=== PATIENT | female | born 1980 | race Caucasian/White ===

== ENCOUNTER 2019-02-11 09:15 | Inpatient (IN) | payer SELFPAY ==
[2019-02-11] MEDS ORDERED: NORMAL SALINE 1000 ML 1,000 ML IV ONE (09:41)
--- NOTE | 2019-02-11 09:44 | ER Document Report ---
ED Medical Screen (RME) - General Chief Complaint: Vaginal Bleeding Stated Complaint: VAGINAL BLEEDING Time Seen by Provider: 02/11/19 09:37 Mode of Arrival: Wheelchair Information source: Patient Notes: 38-year-old female presented to ED for complaint of severe vaginal bleeding with large clots. She was seen here on 29 January and was followed up today at [facility] with Dr. Wei. Dr. Wei sent her to the ED for vaginal bleeding. He was in the process of doing a pelvic when she started having large amounts of bleeding from the vaginal area. Patient states she is continued to have a large amount of bleeding and clots. Patient is alert oriented respirations regular and unlabored speaking in full sentences at this time. Vital signs stable at this time. I have greeted and performed a rapid initial assessment of this patient. A comprehensive ED assessment and evaluation of the patient, analysis of test results and completion of medical decision making process will be conducted by an additional ED providers. Patient is going to take her back Dictation of this chart was performed using voice recognition software; therefore, there may be some unintended grammatical errors. TRAVEL OUTSIDE OF THE [place] IN LAST 30 DAYS: No - Related Data Allergies/Adverse Reactions: No Known Allergies Allergy (Verified 02/11/19 09:18) Past Medical History Pulmonary Medical History: Reports: Hx Asthma Neurological Medical History: Denies: Hx Seizures Renal/ Medical History: Denies: Hx Peritoneal Dialysis Past Surgical History: Reports: Hx Section - x4, Hx Gynecologic Surgery - right ectopic removed. Denies: Hx Hysterectomy - Immunizations Hx Diphtheria, Pertussis, Tetanus Vaccination: Yes Physical Exam - Vital signs Vitals: Temp Pulse Resp BP Pulse Ox 99.7 F 72 16 128/72 H 99 02/11/19 09:23 02/11/19 09:23 02/11/19 09:23 02/11/19 09:23 02/11/19 09:23 Course - Vital Signs Vital signs: Temp Pulse Resp BP Pulse Ox 99.7 F 72 16 128/72 H 99 02/11/19 09:23 02/11/19 09:23 02/11/19 09:23 02/11/19 09:23 02/11/19 09:23
[2019-02-11 10:25] LABS: INTERNATIONAL RATION (INR) 1.06; PROTHROMBIN TIME 13.9 SEC (11.4-15.4)
[2019-02-11 10:30] LABS: ABSOLUTE EOSINOPHILS # (AUTO) 0.1 10^3/uL (0.0-0.6); ABSOLUTE LYMPHOCYTES (AUTO) 0.8 10^3/uL (0.5-4.7); ABSOLUTE MONOCYTES (AUTO) 0.4 10^3/uL (0.1-1.4); BASOPHILS % (AUTO) 0.2 % (0-2); EOSINOPHILS % (AUTO) 1.2 % (0-6); HEMATOCRIT 31.4 % (36.0-47.0); HEMOGLOBIN 10.4 g/dL (12.0-15.5); LYMPHOCYTES % (AUTO) 12.7 % (13-45); MEAN CORPUSCULAR HEMOGLOBIN 25.4 pg (27.0-33.4); MEAN CORPUSCULAR HGB CONC 32.9 g/dL (32.0-36.0); MEAN CORPUSCULAR VOLUME 77 fl (80-97); MONOCYTES % (AUTO) 6.5 % (3-13); PARTIAL THROMBOPLASTIN TIME 28.5 SEC (23.5-35.8); PLATELET COUNT 291 10^3/uL (150-450); RED BLOOD COUNT 4.07 10^6/uL (3.72-5.28); SEGMENTED NEUTROPHILS % (AUTO) 79.4 % (42-78); TOTAL CELLS COUNTED % (AUTO) 100 %; WHITE BLOOD COUNT 6.3 10^3/uL (4.0-10.5)
--- NOTE | 2019-02-11 10:40 | ER Document Report ---
Entered by GIOVANNI BANSAL SCRIBE 02/11/19 1012 Acting as scribe for:ARNULFO LUCERO MD ED General - General Chief Complaint: Vaginal Bleeding Stated Complaint: VAGINAL BLEEDING Time Seen by Provider: 02/11/19 09:37 Mode of Arrival: Wheelchair Notes: Patient is a 38-year-old female presenting to the emergency department complaining of vaginal bleeding. Patient states that she had an episode of extremely heavy bleeding with clots on 01/28/19. She was prescribed TXA to treat a bleeding 6.7 cm submucosal mass of the cervix. Patient states that on 02/07/19 her vaginal bleeding recurred and has been getting progressively worse through the week. Patient states that the first time this bleeding occurred was on 09/15/18 and it was intermittent. Patient states that today it has been better and "it is not gushing as much". Patient states that she has been taking CBD oil for her PCOS symptoms, including her facial acne. She was seen at [facility] today for follow-up, and a speculum exam was done with a plan to biopsy the mass. When the speculum bumped against the mass, it provoked massive bleeding and clots, so the patient was sent to the emergency room for stabilization, possible transfusion, and transfer to the [facility]. TRAVEL OUTSIDE OF THE [place] IN LAST 30 DAYS: No - Related Data Allergies/Adverse Reactions: No Known Allergies Allergy (Verified 02/11/19 09:18) Past Medical History - General Information source: Patient - Social History Smoking Status: Former Smoker Cigarette use (# per day): No Chew tobacco use (# tins/day): No Frequency of alcohol use: None Drug Abuse: None Family History: Reviewed & Not Pertinent Patient has suicidal ideation: No Patient has homicidal ideation: No Pulmonary Medical History: Reports: Hx Asthma Past Surgical History: Reports: Hx Section - x4, Hx Cholecystectomy, Hx Gynecologic Surgery - right ectopic removed - Immunizations Hx Diphtheria, Pertussis, Tetanus Vaccination: Yes Review of Systems - Review of Systems Constitutional: No symptoms reported EENT: No symptoms reported Cardiovascular: No symptoms reported Respiratory: No symptoms reported Gastrointestinal: No symptoms reported Genitourinary: No symptoms reported Female Genitourinary: See HPI, Vaginal bleeding Musculoskeletal: No symptoms reported Skin: No symptoms reported Hematologic/Lymphatic: No symptoms reported Neurological/Psychological: No symptoms reported -: Yes All other systems reviewed and negative Physical Exam - Vital signs Vitals: Temp Pulse Resp BP Pulse Ox 99.7 F 72 16 128/72 H 99 02/11/19 09:23 02/11/19 09:23 02/11/19 09:23 02/11/19 09:23 02/11/19 09:23 - Notes Notes: Physical Exam: General: Alert, appears well face has a malar rash, very arithmetic. HEENT: Normocephalic. Atraumatic. PERRL. Extraocular movements intact. Oropharynx clear. Neck: Supple. Non-tender. Respiratory: No respiratory distress. Clear and equal breath sounds bilaterally. Cardiovascular: Regular rate and rhythm. Abdominal: Mildly obese. normal Inspection. Non-tender. No distension. Normal Bowel Sounds. Back: Non-tender. No deformity or step off. Extremities: Moves all four extremities. Upper extremities: Normal inspection. Normal ROM. Lower extremities: Normal inspection. No edema. Normal ROM. Neurological: Normal cognition. AAOx4. Normal speech. Psychological: Normal affect. Normal Mood. Skin: Warm. Dry. Normal color. Course - Re-evaluation Re-evalutation: 02/11/19 10:41 Patient's hemoglobin on 01/29/2019 ER visit was 11.2, today before any IV hydration her hemoglobin is 10.4 She is not actively bleeding at this time. She states she did get up to go to the bathroom and there was only a trickle amount on her pad, exam again at this time shows minimal staining to her pad. The pad was removed and the labia spread apart and there was no active bleeding noted. 02/11/19 12:53 At this time the patient reports that the bleeding feels about like a normal. And has become heavy since she arrived in the emergency room. 02/11/19 15:17 Shortly after I was told that there would not be a bed available for greater than 24 hours at [facility], I made arrangements for the patient to be admitted to our facility until bed with be available tomorrow. Less than 15 minutes later I am told that transport is on the way to take the patient and that she does have a bed assignment. - Vital Signs Vital signs: Temp Pulse Resp BP Pulse Ox 99.7 F 72 13 126/60 H 100 02/11/19 09:23 02/11/19 09:23 02/11/19 13:20 02/11/19 13:20 02/11/19 13:20 - Laboratory Result Diagrams: 02/11/19 10:03 02/11/19 10:03 Laboratory results interpreted by me: 02/11/19 02/11/19 02/11/19 10:03 10:03 10:30 Hgb 10.4 L Hct 31.4 L MCV 77 L MCH 25.4 L RDW 15.0 H Seg Neutrophils % 79.4 H Lymphocytes % 12.7 L Chloride 108 H Urine Blood LARGE H Ur Leukocyte Esterase TRACE H - Consults Dr. Fleming Time consulted: 12:55 Consulted provider: other - Call back at 1:[address] Fleming the [facility] oncologist on-call is in the operating room, however he has accepted the patient and she will go on a waiting list for a bed at [facility]. Dr. Cohn Time consulted: 15:00 Consulted provider: will see as inpatient - Patient will be admitted to the second floor here pending transfer to [facility] when a bed becomes available. Discharge - Discharge Clinical Impression: Cervical mass, Vaginal bleeding Condition: Stable Disposition: [facility] Scribe Attestation: 02/11/19 13:50 I personally performed the services described in the documentation, reviewed and edited the documentation which was dictated to the scribe in my presence, and it accurately records my words and actions. I personally performed the services described in the documentation, reviewed and edited the documentation which was dictated to the scribe in my presence, and it accurately records my words and actions.
[2019-02-11 10:43] LABS: ALANINE AMINOTRANSFERASE 18 U/L (9-52); ALBUMIN 4.2 g/dL (3.5-5.0); ALKALINE PHOSPHATASE 65 U/L (38-126); ANION GAP 10 (5-19); ASPARTATE AMINO TRANSFERASE 21 U/L (14-36); BILIRUBIN,DIRECT 0.3 mg/dL (0.0-0.4); BILIRUBIN,TOTAL 0.4 mg/dL (0.2-1.3); BLOOD UREA NITROGEN 11 mg/dL (7-20); CALCIUM 9.3 mg/dL (8.4-10.2); CARBON DIOXIDE 22 mmol/L (22-30); CHLORIDE 108 mmol/L (98-107); GLUCOSE 101 mg/dL (75-110); POTASSIUM 4.2 mmol/L (3.6-5.0); SODIUM 139.6 mmol/L (137-145); TOTAL PROTEIN 7.3 g/dL (6.3-8.2)
[2019-02-11 11:01] LABS: APPEARANCE,URINE CLEAR; BILIRUBIN,URINE NEGATIVE (NEGATIVE); COLOR,URINE YELLOW; GLUCOSE, URINE NEGATIVE (NEGATIVE); KETONES,URINE NEGATIVE (NEGATIVE); LEUKOCYTE ESTERASE,URINE TRACE (NEGATIVE); NITRITE,URINE NEGATIVE (NEGATIVE); PROTEIN,URINE NEGATIVE (NEGATIVE); UROBILINOGEN,URINE NEGATIVE mg/dL (<2.0)
[2019-02-11 16:11] VITALS: BP 122/77
== END 2019-02-11 17:30 | disposition short-term general hospital (02) | DRG 761 ==
LOC: ER 09:15 → EH 15:09
PROVIDERS: ADMIT Obstetrics & Gynecology Gynecology; ATTEND Obstetrics & Gynecology Gynecology
DX: N88.9 Noninflammatory disorder of cervix uteri, unspecified (principal)
CPT/HCPCS: 36415; 80053; 81001; 85025; 85610; 85730; 86850; 86900; 86901; 99284; J7030